=== PATIENT | male | born 1990 | race Two or more races ===

== ENCOUNTER 2021-10-14 11:54 | Emergency (ER) | payer SELFPAY | END 2021-10-14 12:08 | disposition left against medical advice (07) | LOC: ER 11:54 → EDBD 11:54 → ER 12:08 | DX: T14.90XA Injury, unspecified, initial encounter (principal); Z53.21 Procedure and treatment not carried out due to patient leaving prior to being seen by health care provider; W54.0XXA Bitten by dog, initial encounter; Y93.89 Activity, other specified; Y92.89 Other specified places as the place of occurrence of the external cause; Y99.8 Other external cause status ==